=== PATIENT | male | born 1935 | race Caucasian/White ===

== ENCOUNTER 2019-06-08 11:19 | Inpatient (IN) | payer BC ==
[~2019-06-08] VITALS: Ht 167.6 cm; Wt 59.9 kg
[2019-06-08 11:27] VITALS: BP_SYST 117
[2019-06-08 12:17] LABS: BASOPHILS # (AUTO) 0.1 K/uL (0.0-0.2); BASOPHILS % (AUTO) 0.8 % (0.0-2.0); EOSINOPHILS # (AUTO) 0.4 K/uL (0.0-0.4); EOSINOPHILS % (AUTO) 4.1 % (0.0-4.0); HEMATOCRIT 30.8 % (36-54); HEMOGLOBIN 10.2 g/dL (14.0-18.0); LYMPHOCYTES # (AUTO) 0.6 K/uL (1.0-5.5); LYMPHOCYTES % (AUTO) 6.6 % (20.5-51.5); MEAN CORPUSCULAR HEMOGLOBIN 29 pg (27-31); MEAN CORPUSCULAR HGB CONC 33 % (32-36); MEAN CORPUSCULAR VOLUME 89 fL (79.0-98.0); MONOCYTES # (AUTO) 0.9 K/uL (0.0-1.0); MONOCYTES % (AUTO) 10.8 % (1.7-9.3); NEUTROPHILS # (AUTO) 6.7 K/uL (1.8-7.7); NEUTROPHILS % (AUTO) 77.7 % (40.0-70.0); PLATELET COUNT (AUTO) 372 K/uL (130-430); RED BLOOD CELL COUNT(AUTO) 3.48 MIL/uL (4.2-6.2); RED CELL DISTRIBUTION WIDTH 14.4 % (9.0-15.0); WHITE BLOOD COUNT (AUTO) 8.7 K/uL (4.8-10.8)
[2019-06-08 12:31] LABS: ANION GAP 8 (5-15); CALCIUM 8.9 mg/dL (8.4-11.0); CHLORIDE 107 mmol/L (98-107); CREATININE 1.19 mg/dL (0.55-1.30); GLUCOSE 125 mg/dL (70-99); INR 1.2 (0.80-1.20); POTASSIUM 4.4 mmol/L (3.5-5.1); PROTHROMBIN TIME 11.7 SECS (9.5-12.5); SODIUM SERUM 142 mmol/L (136-145); UREA NITROGEN, BLOOD 23 mg/dL (8-21)
[2019-06-08 12:41] LABS: ALANINE AMINOTRANSFERASE 17 U/L (12-78); ALBUMIN 2.4 g/dL (3.4-4.8); ASPARTATE AMINOTRANSFERASE 18 U/L (10-37); FREE T4 (FREE THYROXINE) 1.3 ng/dl (0.8-1.5); TOTAL BILIRUBIN 0.5 mg/dL (0.0-1.0)
[2019-06-08 12:43] LABS: BILIRUBIN,URINE NEGATIVE (NEGATIVE); BLOOD, URINE 1+ (NEGATIVE); CLARITY/URINE CLEAR (CLEAR); COLOR,URINE YELLOW (YELLOW); GLUCOSE,URINE NEGATIVE (NEGATIVE); KETONES,URINE NEGATIVE (NEGATIVE); LEUKOCYTE ESTERASE ,URINE NEGATIVE (NEGATIVE); NITRITE, URINE NEGATIVE (NEGATIVE); PH,URINE 5.5 (5.0-8.0); PROTEIN URINE NEGATIVE (NEGATIVE)
[2019-06-08 12:46] LABS: ALCOHOL, BLOOD < 3 mg/dL (<10)
[2019-06-08 12:49] LABS: BACTERIA,URINE FEW /HPF (None Seen); MUCUS,URINE 1+ /LPF (None Seen); WBC,URINE 0-3 /HPF (0-3)
[2019-06-08 12:53] LABS: BARBITURATE, URINE NEGATIVE (NEG <=200); BENZODIAZEPINE, URINE NEGATIVE (NEG <=150); CANNABINOID, URINE NEGATIVE (NEG <=50); COCAINE, URINE NEGATIVE (NEG <=150); METHAMPHETAMINES SCREEN,URINE NEGATIVE (NEG <=500); OPIATE, URINE POSITIVE (NEG <=100); PHENCYCLIDINE SCREEN,URINE NEGATIVE (NEG <=25); URINE AMPHETAMINE NEGATIVE (NEG <=500); URINE METHADONE NEGATIVE (NEG <=200)
[2019-06-08 12:54] LABS: UR TRICYCLIC ANTIDEPRESSANTS NEGATIVE (NEG <=300); URINE OXYCODONE SCREEN POSITIVE (NEG <=100); URINE PROPOXYPHENE SCREEN NEGATIVE (NEG <=300)
[2019-06-08] MEDS ORDERED: ATEN50TA PO (14:41)
[2019-06-08] MEDS ORDERED: ASPI-1155 PO (14:41)
[2019-06-08] MEDS ORDERED: ATOR10TA68 PO (14:41)
[2019-06-08] MEDS ORDERED: CHOL200026 PO (14:41)
[2019-06-08] MEDS ORDERED: LANS15CA14 PO (14:41)
[2019-06-08] MEDS ORDERED: PLAVIX PO (14:41)
[2019-06-08] MEDS ORDERED: LACT1CAP61 PO (14:41)
[2019-06-08] MEDS ORDERED: ASCO500T20 PO (14:41)
[2019-06-08] MEDS ORDERED: FEN12PAT TD (14:41)
[2019-06-08] MEDS ORDERED: HYDR-3925 PO (14:41)
[2019-06-08] MEDS ORDERED: DIPHENHYDRAMINE INJ 50 MG/ML VIAL IVP ONE (15:00)
[2019-06-08] MEDS ORDERED: MORPHINE 2 MG/ML INJ. SYRINGE IVP ONE (15:00)
[2019-06-08 18:54] VITALS: BP_SYST 145
[2019-06-08] MEDS ORDERED: HYDROcodone/ACETAMIN 5-325 MG TAB (NORCO/ VICODIN) PO PRN (19:00)
[2019-06-08] MEDS ORDERED: ONDANSETRON HCL 4 MG/2 ML VIAL IVP PRN (19:00)
[2019-06-08] MEDS ORDERED: ACETAMINOPHEN 325 MG TABLET PO PRN (19:00)
[2019-06-08] MEDS ORDERED: LORazepam 2 MG/ML VIAL IVP PRN (19:00)
[2019-06-08 20:00] VITALS: BP_SYST 148
[2019-06-08] MEDS ORDERED: HYDROcodone/ACETAMIN 10-325 MG TAB PO PRN (20:15)
[2019-06-08] MEDS ORDERED: NORMAL SALINE 5 ML DISP.SYRIN IVF SCH (22:00)
[2019-06-08] MEDS: LACTOBACILLUS RHAMNOSUS GG 1 CAP CAPSULE PO SCH (23:38)
[2019-06-08] MEDS: NORMAL SALINE 5 ML DISP.SYRIN IVF SCH (23:39)
[2019-06-08] MEDS: HYDROcodone/ACETAMIN 10-325 MG TAB PO PRN (23:47)
[2019-06-09 02:10] VITALS: BP_SYST 143
[2019-06-09] MEDS: NORMAL SALINE 5 ML DISP.SYRIN IVF SCH ×3 (05:56→21:31)
[2019-06-09] MEDS: HYDROcodone/ACETAMIN 10-325 MG TAB PO PRN ×2 (05:57→15:53)
[2019-06-09 07:12] LABS: BASOPHILS # (AUTO) 0.1 K/uL (0.0-0.2); BASOPHILS % (AUTO) 0.6 % (0.0-2.0); EOSINOPHILS # (AUTO) 0.5 K/uL (0.0-0.4); EOSINOPHILS % (AUTO) 6.1 % (0.0-4.0); HEMATOCRIT 31.1 % (36-54); HEMOGLOBIN 10.5 g/dL (14.0-18.0); LYMPHOCYTES # (AUTO) 0.8 K/uL (1.0-5.5); LYMPHOCYTES % (AUTO) 9.5 % (20.5-51.5); MEAN CORPUSCULAR HEMOGLOBIN 30 pg (27-31); MEAN CORPUSCULAR HGB CONC 34 % (32-36); MEAN CORPUSCULAR VOLUME 88 fL (79.0-98.0); MONOCYTES % (AUTO) 11.8 % (1.7-9.3); NEUTROPHILS # (AUTO) 6.3 K/uL (1.8-7.7); PLATELET COUNT (AUTO) 358 K/uL (130-430); RED BLOOD CELL COUNT(AUTO) 3.53 MIL/uL (4.2-6.2); RED CELL DISTRIBUTION WIDTH 14.2 % (9.0-15.0); WHITE BLOOD COUNT (AUTO) 8.7 K/uL (4.8-10.8)
[2019-06-09 07:39] LABS: ALANINE AMINOTRANSFERASE 12 U/L (12-78); ALBUMIN 2.3 g/dL (3.4-4.8); ANION GAP 7 (5-15); ASPARTATE AMINOTRANSFERASE 20 U/L (10-37); CALCIUM 8.8 mg/dL (8.4-11.0); CHLORIDE 107 mmol/L (98-107); CREATININE 1.01 mg/dL (0.55-1.30); GLUCOSE 93 mg/dL (70-99); PHOSPHORUS 3.6 mg/dL (2.7-4.5); POTASSIUM 4.8 mmol/L (3.5-5.1); SODIUM SERUM 142 mmol/L (136-145); TOTAL BILIRUBIN 0.7 mg/dL (0.0-1.0); UREA NITROGEN, BLOOD 18 mg/dL (8-21)
[2019-06-09 08:20] VITALS: BP_SYST 138
[2019-06-09] MEDS ORDERED: fentaNYL 12 MCG/HR PATCH TD SCH (09:00)
[2019-06-09] MEDS: LACTOBACILLUS RHAMNOSUS GG 1 CAP CAPSULE PO SCH ×2 (09:20→21:30)
[2019-06-09] MEDS: ASPIRIN 81 MG TAB.CHEW PO SCH (09:20)
[2019-06-09] MEDS: ASCORBIC ACID 500 MG TABLET PO SCH (09:21)
[2019-06-09] MEDS: ATORVASTATIN 10 MG TABLET PO SCH (09:21)
[2019-06-09] MEDS: CHOLECALCIFEROL (VITAMIN D3) 2,000 UNIT TABLET PO SCH (09:21)
[2019-06-09] MEDS: CLOPIDOGREL BISULFATE 75 MG TABLET PO SCH (09:21)
[2019-06-09] MEDS: ATENOLOL 50 MG TABLET (TENORMIN) PO SCH (09:22)
[2019-06-09 12:47] VITALS: BP_SYST 132
[2019-06-09] MEDS ORDERED: POLYETHYLENE GLYCOL 3350, 17 GM/ POWD.PACK PO ONE (15:45)
[2019-06-09 16:47] VITALS: BP_SYST 124
[2019-06-09] MEDS: OXYCODONE/ACETAMINOPHEN *10*mg/325 mg TABLET PO PRN (19:08)
[2019-06-09 20:00] VITALS: BP_SYST 138
[2019-06-09] MEDS: LANSOPRAZOLE 30 MG CAPSULE.DR PO SCH (21:30)
[2019-06-10] MEDS: HYDROcodone/ACETAMIN 10-325 MG TAB PO PRN ×2 (00:44→14:31)
[2019-06-10 01:02] VITALS: BP_SYST 151
[2019-06-10] MEDS: NORMAL SALINE 5 ML DISP.SYRIN IVF SCH ×3 (05:19→21:31)
[2019-06-10 07:54] LABS: BASOPHILS # (AUTO) 0.1 K/uL (0.0-0.2); BASOPHILS % (AUTO) 0.6 % (0.0-2.0); EOSINOPHILS # (AUTO) 0.5 K/uL (0.0-0.4); EOSINOPHILS % (AUTO) 5.4 % (0.0-4.0); HEMOGLOBIN 10.6 g/dL (14.0-18.0); LYMPHOCYTES # (AUTO) 0.6 K/uL (1.0-5.5); LYMPHOCYTES % (AUTO) 6.6 % (20.5-51.5); MEAN CORPUSCULAR HEMOGLOBIN 29 pg (27-31); MEAN CORPUSCULAR HGB CONC 33 % (32-36); MEAN CORPUSCULAR VOLUME 88 fL (79.0-98.0); MONOCYTES # (AUTO) 0.9 K/uL (0.0-1.0); MONOCYTES % (AUTO) 9.9 % (1.7-9.3); NEUTROPHILS # (AUTO) 6.9 K/uL (1.8-7.7); NEUTROPHILS % (AUTO) 77.5 % (40.0-70.0); PLATELET COUNT (AUTO) 359 K/uL (130-430); RED BLOOD CELL COUNT(AUTO) 3.64 MIL/uL (4.2-6.2); RED CELL DISTRIBUTION WIDTH 14.2 % (9.0-15.0); WHITE BLOOD COUNT (AUTO) 8.9 K/uL (4.8-10.8)
[2019-06-10 08:00] VITALS: BP_SYST 153
[2019-06-10 08:20] LABS: ANION GAP 6 (5-15); CALCIUM 9.2 mg/dL (8.4-11.0); CHLORIDE 105 mmol/L (98-107); CREATININE 0.95 mg/dL (0.55-1.30); GLUCOSE 96 mg/dL (70-99); POTASSIUM 4.4 mmol/L (3.5-5.1); SODIUM SERUM 141 mmol/L (136-145); UREA NITROGEN, BLOOD 14 mg/dL (8-21)
[2019-06-10] MEDS: ATENOLOL 50 MG TABLET (TENORMIN) PO SCH (10:17)
[2019-06-10] MEDS: CLOPIDOGREL BISULFATE 75 MG TABLET PO SCH (10:17)
[2019-06-10] MEDS: POLYETHYLENE GLYCOL 3350, 17 GM/ POWD.PACK PO SCH (10:17)
[2019-06-10] MEDS: LACTOBACILLUS RHAMNOSUS GG 1 CAP CAPSULE PO SCH ×2 (10:17→21:30)
[2019-06-10] MEDS: ATORVASTATIN 10 MG TABLET PO SCH (10:18)
[2019-06-10] MEDS: CHOLECALCIFEROL (VITAMIN D3) 2,000 UNIT TABLET PO SCH (10:18)
[2019-06-10] MEDS: ASPIRIN 81 MG TAB.CHEW PO SCH (10:18)
[2019-06-10] MEDS: ASCORBIC ACID 500 MG TABLET PO SCH (10:18)
[2019-06-10] MEDS: OXYCODONE/ACETAMINOPHEN *10*mg/325 mg TABLET PO PRN ×3 (10:56→21:57)
[2019-06-10 11:33] VITALS: BP_SYST 156
[2019-06-10] MEDS ORDERED: fentaNYL 25 MCG/HR PATCH TD ONE (12:15)
[2019-06-10] MEDS: D5/0.45 NS 1,000 ML IV SCH ×2 (12:52→21:33)
[2019-06-10 15:31] VITALS: BP_SYST 160
[2019-06-10 19:55] VITALS: BP_SYST 144
[2019-06-10] MEDS: LANSOPRAZOLE 30 MG CAPSULE.DR PO SCH (21:30)
[2019-06-11 01:09] VITALS: BP_SYST 124
[2019-06-11] MEDS: D5/0.45 NS 1,000 ML IV SCH ×2 (05:55→18:09)
[2019-06-11] MEDS: OXYCODONE/ACETAMINOPHEN *10*mg/325 mg TABLET PO PRN ×4 (05:55→21:12)
[2019-06-11] MEDS: NORMAL SALINE 5 ML DISP.SYRIN IVF SCH ×3 (05:56→21:11)
[2019-06-11 06:55] LABS: BASOPHILS % (AUTO) 0.5 % (0.0-2.0); EOSINOPHILS # (AUTO) 0.7 K/uL (0.0-0.4); EOSINOPHILS % (AUTO) 7.6 % (0.0-4.0); HEMATOCRIT 30.1 % (36-54); HEMOGLOBIN 10.3 g/dL (14.0-18.0); LYMPHOCYTES # (AUTO) 0.6 K/uL (1.0-5.5); LYMPHOCYTES % (AUTO) 6.4 % (20.5-51.5); MEAN CORPUSCULAR HEMOGLOBIN 30 pg (27-31); MEAN CORPUSCULAR HGB CONC 34 % (32-36); MEAN CORPUSCULAR VOLUME 87 fL (79.0-98.0); MONOCYTES # (AUTO) 0.9 K/uL (0.0-1.0); MONOCYTES % (AUTO) 10.2 % (1.7-9.3); NEUTROPHILS # (AUTO) 6.5 K/uL (1.8-7.7); NEUTROPHILS % (AUTO) 75.3 % (40.0-70.0); PLATELET COUNT (AUTO) 331 K/uL (130-430); RED BLOOD CELL COUNT(AUTO) 3.46 MIL/uL (4.2-6.2); RED CELL DISTRIBUTION WIDTH 14.1 % (9.0-15.0); WHITE BLOOD COUNT (AUTO) 8.7 K/uL (4.8-10.8)
[2019-06-11 07:13] LABS: ANION GAP 5 (5-15); CALCIUM 8.5 mg/dL (8.4-11.0); CHLORIDE 103 mmol/L (98-107); CREATININE 0.84 mg/dL (0.55-1.30); GLUCOSE 124 mg/dL (70-99); SODIUM SERUM 136 mmol/L (136-145); UREA NITROGEN, BLOOD 13 mg/dL (8-21)
[2019-06-11 08:07] VITALS: BP_SYST 110
[2019-06-11] MEDS: POLYETHYLENE GLYCOL 3350, 17 GM/ POWD.PACK PO SCH ×2 (09:00→09:05)
[2019-06-11] MEDS: CLOPIDOGREL BISULFATE 75 MG TABLET PO SCH (09:05)
[2019-06-11] MEDS: ASCORBIC ACID 500 MG TABLET PO SCH (09:05)
[2019-06-11] MEDS: LACTOBACILLUS RHAMNOSUS GG 1 CAP CAPSULE PO SCH ×2 (09:05→21:10)
[2019-06-11] MEDS: CHOLECALCIFEROL (VITAMIN D3) 2,000 UNIT TABLET PO SCH (09:06)
[2019-06-11] MEDS: ATORVASTATIN 10 MG TABLET PO SCH (09:06)
[2019-06-11] MEDS: ASPIRIN 81 MG TAB.CHEW PO SCH (09:06)
[2019-06-11] MEDS: ATENOLOL 50 MG TABLET (TENORMIN) PO SCH (09:07)
[2019-06-11 11:21] VITALS: BP_SYST 126
[2019-06-11 17:54] VITALS: BP_SYST 123
[2019-06-11 19:40] VITALS: BP_SYST 120
[2019-06-11] MEDS: LANSOPRAZOLE 30 MG CAPSULE.DR PO SCH (21:10)
[2019-06-12 01:03] VITALS: BP_SYST 122
[2019-06-12] MEDS: OXYCODONE/ACETAMINOPHEN *10*mg/325 mg TABLET PO PRN ×5 (04:28→22:12)
[2019-06-12] MEDS: D5/0.45 NS 1,000 ML IV SCH ×2 (04:28→16:37)
[2019-06-12] MEDS: NORMAL SALINE 5 ML DISP.SYRIN IVF SCH ×3 (06:54→22:00)
[2019-06-12 07:42] LABS: ALANINE AMINOTRANSFERASE 15 U/L (12-78); ALBUMIN 1.8 g/dL (3.4-4.8); ANION GAP 4 (5-15); ASPARTATE AMINOTRANSFERASE 20 U/L (10-37); CALCIUM 8.1 mg/dL (8.4-11.0); CHLORIDE 104 mmol/L (98-107); CREATININE 0.93 mg/dL (0.55-1.30); GLUCOSE 128 mg/dL (70-99); POTASSIUM 4.1 mmol/L (3.5-5.1); SODIUM SERUM 136 mmol/L (136-145); TOTAL BILIRUBIN 0.4 mg/dL (0.0-1.0); UREA NITROGEN, BLOOD 12 mg/dL (8-21)
[2019-06-12 07:48] LABS: BASOPHILS # (AUTO) 0.1 K/uL (0.0-0.2); BASOPHILS % (AUTO) 0.6 % (0.0-2.0); EOSINOPHILS # (AUTO) 0.9 K/uL (0.0-0.4); EOSINOPHILS % (AUTO) 9.8 % (0.0-4.0); HEMATOCRIT 29.7 % (36-54); LYMPHOCYTES # (AUTO) 0.7 K/uL (1.0-5.5); LYMPHOCYTES % (AUTO) 7.7 % (20.5-51.5); MEAN CORPUSCULAR HEMOGLOBIN 30 pg (27-31); MEAN CORPUSCULAR HGB CONC 34 % (32-36); MEAN CORPUSCULAR VOLUME 88 fL (79.0-98.0); MONOCYTES % (AUTO) 11.2 % (1.7-9.3); NEUTROPHILS # (AUTO) 6.5 K/uL (1.8-7.7); NEUTROPHILS % (AUTO) 70.7 % (40.0-70.0); PLATELET COUNT (AUTO) 326 K/uL (130-430); RED BLOOD CELL COUNT(AUTO) 3.38 MIL/uL (4.2-6.2); WHITE BLOOD COUNT (AUTO) 9.2 K/uL (4.8-10.8)
[2019-06-12] MEDS: POLYETHYLENE GLYCOL 3350, 17 GM/ POWD.PACK PO SCH (08:51)
[2019-06-12] MEDS: CHOLECALCIFEROL (VITAMIN D3) 2,000 UNIT TABLET PO SCH (08:51)
[2019-06-12] MEDS: LACTOBACILLUS RHAMNOSUS GG 1 CAP CAPSULE PO SCH ×2 (08:51→22:07)
[2019-06-12] MEDS: ASCORBIC ACID 500 MG TABLET PO SCH (08:52)
[2019-06-12] MEDS: CLOPIDOGREL BISULFATE 75 MG TABLET PO SCH (08:52)
[2019-06-12] MEDS: ATENOLOL 50 MG TABLET (TENORMIN) PO SCH (08:53)
[2019-06-12] MEDS: ASPIRIN 81 MG TAB.CHEW PO SCH (08:53)
[2019-06-12] MEDS: ATORVASTATIN 10 MG TABLET PO SCH (08:53)
[2019-06-12 12:00] VITALS: BP_SYST 129
[2019-06-12 17:01] VITALS: BP_SYST 135
[2019-06-12 21:55] VITALS: BP_SYST 152
[2019-06-12] MEDS: LANSOPRAZOLE 30 MG CAPSULE.DR PO SCH (22:07)
[2019-06-13] MEDS: OXYCODONE/ACETAMINOPHEN *10*mg/325 mg TABLET PO PRN ×4 (02:16→20:27)
[2019-06-13] MEDS: D5/0.45 NS 1,000 ML IV SCH ×2 (02:17→11:52)
[2019-06-13 02:20] VITALS: BP_SYST 133
[2019-06-13] MEDS: NORMAL SALINE 5 ML DISP.SYRIN IVF SCH ×3 (06:00→20:32)
[2019-06-13 06:55] LABS: BASOPHILS # (AUTO) 0.1 K/uL (0.0-0.2); BASOPHILS % (AUTO) 1.1 % (0.0-2.0); EOSINOPHILS # (AUTO) 0.9 K/uL (0.0-0.4); HEMATOCRIT 30.2 % (36-54); HEMOGLOBIN 10.1 g/dL (14.0-18.0); LYMPHOCYTES % (AUTO) 11.9 % (20.5-51.5); MEAN CORPUSCULAR HEMOGLOBIN 30 pg (27-31); MEAN CORPUSCULAR HGB CONC 33 % (32-36); MEAN CORPUSCULAR VOLUME 89 fL (79.0-98.0); MONOCYTES # (AUTO) 1.1 K/uL (0.0-1.0); MONOCYTES % (AUTO) 12.5 % (1.7-9.3); NEUTROPHILS # (AUTO) 5.6 K/uL (1.8-7.7); NEUTROPHILS % (AUTO) 64.5 % (40.0-70.0); PLATELET COUNT (AUTO) 302 K/uL (130-430); RED CELL DISTRIBUTION WIDTH 14.2 % (9.0-15.0); WHITE BLOOD COUNT (AUTO) 8.7 K/uL (4.8-10.8)
[2019-06-13 07:06] LABS: ANION GAP 4 (5-15); CHLORIDE 104 mmol/L (98-107); CREATININE 0.87 mg/dL (0.55-1.30); GLUCOSE 108 mg/dL (70-99); POTASSIUM 5.2 mmol/L (3.5-5.1); SODIUM SERUM 136 mmol/L (136-145); UREA NITROGEN, BLOOD 13 mg/dL (8-21)
[2019-06-13 07:36] LABS: CALCIUM 8.2 mg/dL (8.4-11.0)
[2019-06-13 07:55] VITALS: BP_SYST 111
[2019-06-13] MEDS: CHOLECALCIFEROL (VITAMIN D3) 2,000 UNIT TABLET PO SCH (07:57)
[2019-06-13] MEDS: CLOPIDOGREL BISULFATE 75 MG TABLET PO SCH (07:57)
[2019-06-13] MEDS: ASPIRIN 81 MG TAB.CHEW PO SCH (07:57)
[2019-06-13] MEDS: LACTOBACILLUS RHAMNOSUS GG 1 CAP CAPSULE PO SCH ×2 (07:57→20:25)
[2019-06-13] MEDS: ATORVASTATIN 10 MG TABLET PO SCH (07:57)
[2019-06-13] MEDS: ATENOLOL 50 MG TABLET (TENORMIN) PO SCH (07:58)
[2019-06-13] MEDS: ASCORBIC ACID 500 MG TABLET PO SCH (07:58)
[2019-06-13] MEDS: POLYETHYLENE GLYCOL 3350, 17 GM/ POWD.PACK PO SCH (07:59)
[2019-06-13] MEDS ORDERED: fentaNYL 12 MCG/HR PATCH TD SCH ×3 (09:00)
[2019-06-13 11:43] VITALS: BP_SYST 123
[2019-06-13 16:55] VITALS: BP_SYST 118
[2019-06-13] MEDS ORDERED: SODIUM POLYSTYRENE SULFONATE 15 GM/60 ML UDBTL PO ONE (17:45)
[2019-06-13 20:17] VITALS: BP_SYST 137
[2019-06-13] MEDS: DOCUSATE SODIUM 250 MG CAPSULE PO SCH (20:25)
[2019-06-13] MEDS: LANSOPRAZOLE 30 MG CAPSULE.DR PO SCH (20:25)
[2019-06-14 00:32] VITALS: BP_SYST 149
[2019-06-14] MEDS: OXYCODONE/ACETAMINOPHEN *10*mg/325 mg TABLET PO PRN ×4 (04:53→21:31)
[2019-06-14] MEDS: NORMAL SALINE 5 ML DISP.SYRIN IVF SCH ×3 (05:21→21:35)
[2019-06-14 06:25] LABS: ALANINE AMINOTRANSFERASE 22 U/L (12-78); ANION GAP 5 (5-15); ASPARTATE AMINOTRANSFERASE 24 U/L (10-37); CALCIUM 8.2 mg/dL (8.4-11.0); CHLORIDE 102 mmol/L (98-107); CREATININE 0.89 mg/dL (0.55-1.30); GLUCOSE 100 mg/dL (70-99); POTASSIUM 3.8 mmol/L (3.5-5.1); SODIUM SERUM 137 mmol/L (136-145); TOTAL BILIRUBIN 0.5 mg/dL (0.0-1.0); UREA NITROGEN, BLOOD 12 mg/dL (8-21)
[2019-06-14 07:18] LABS: BASOPHILS # (AUTO) 0.1 K/uL (0.0-0.2); BASOPHILS % (AUTO) 0.6 % (0.0-2.0); EOSINOPHILS # (AUTO) 0.8 K/uL (0.0-0.4); HEMATOCRIT 29.2 % (36-54); HEMOGLOBIN 9.8 g/dL (14.0-18.0); LYMPHOCYTES # (AUTO) 0.6 K/uL (1.0-5.5); LYMPHOCYTES % (AUTO) 7.3 % (20.5-51.5); MEAN CORPUSCULAR HEMOGLOBIN 30 pg (27-31); MEAN CORPUSCULAR HGB CONC 34 % (32-36); MEAN CORPUSCULAR VOLUME 88 fL (79.0-98.0); MONOCYTES % (AUTO) 11.1 % (1.7-9.3); NEUTROPHILS # (AUTO) 6.3 K/uL (1.8-7.7); PLATELET COUNT (AUTO) 320 K/uL (130-430); RED BLOOD CELL COUNT(AUTO) 3.33 MIL/uL (4.2-6.2); RED CELL DISTRIBUTION WIDTH 13.9 % (9.0-15.0); WHITE BLOOD COUNT (AUTO) 8.7 K/uL (4.8-10.8)
[2019-06-14 08:00] VITALS: BP_SYST 126
[2019-06-14] MEDS: CLOPIDOGREL BISULFATE 75 MG TABLET PO SCH (08:59)
[2019-06-14] MEDS: ASPIRIN 81 MG TAB.CHEW PO SCH (08:59)
[2019-06-14] MEDS: ATORVASTATIN 10 MG TABLET PO SCH (09:00)
[2019-06-14] MEDS: DOCUSATE SODIUM 250 MG CAPSULE PO SCH ×3 (09:00→20:36)
[2019-06-14] MEDS: ASCORBIC ACID 500 MG TABLET PO SCH (09:00)
[2019-06-14] MEDS: POLYETHYLENE GLYCOL 3350, 17 GM/ POWD.PACK PO SCH (09:00)
[2019-06-14] MEDS: LACTOBACILLUS RHAMNOSUS GG 1 CAP CAPSULE PO SCH ×2 (09:00→20:28)
[2019-06-14] MEDS: ATENOLOL 50 MG TABLET (TENORMIN) PO SCH (09:00)
[2019-06-14] MEDS: CHOLECALCIFEROL (VITAMIN D3) 2,000 UNIT TABLET PO SCH (09:00)
[2019-06-14 12:49] VITALS: BP_SYST 118
[2019-06-14 16:57] VITALS: BP_SYST 134
[2019-06-14 20:00] VITALS: BP_SYST 134
[2019-06-14] MEDS: LANSOPRAZOLE 30 MG CAPSULE.DR PO SCH (20:28)
[2019-06-15 00:30] VITALS: BP_SYST 119
[2019-06-15] MEDS: OXYCODONE/ACETAMINOPHEN *10*mg/325 mg TABLET PO PRN ×4 (05:06→20:31)
[2019-06-15] MEDS: NORMAL SALINE 5 ML DISP.SYRIN IVF SCH ×3 (05:07→21:35)
[2019-06-15 06:43] LABS: BASOPHILS # (AUTO) 0.1 K/uL (0.0-0.2); BASOPHILS % (AUTO) 0.9 % (0.0-2.0); EOSINOPHILS # (AUTO) 0.7 K/uL (0.0-0.4); EOSINOPHILS % (AUTO) 9.7 % (0.0-4.0); LYMPHOCYTES # (AUTO) 0.9 K/uL (1.0-5.5); MEAN CORPUSCULAR HEMOGLOBIN 30 pg (27-31); MEAN CORPUSCULAR HGB CONC 34 % (32-36); MEAN CORPUSCULAR VOLUME 88 fL (79.0-98.0); MONOCYTES # (AUTO) 0.8 K/uL (0.0-1.0); MONOCYTES % (AUTO) 10.8 % (1.7-9.3); NEUTROPHILS # (AUTO) 4.8 K/uL (1.8-7.7); NEUTROPHILS % (AUTO) 66.6 % (40.0-70.0); PLATELET COUNT (AUTO) 331 K/uL (130-430); WHITE BLOOD COUNT (AUTO) 7.2 K/uL (4.8-10.8)
[2019-06-15 06:44] LABS: ANION GAP 4 (5-15); CALCIUM 8.8 mg/dL (8.4-11.0); CHLORIDE 103 mmol/L (98-107); CREATININE 0.86 mg/dL (0.55-1.30); GLUCOSE 85 mg/dL (70-99); POTASSIUM 4.4 mmol/L (3.5-5.1); SODIUM SERUM 138 mmol/L (136-145); UREA NITROGEN, BLOOD 14 mg/dL (8-21)
[2019-06-15 07:39] VITALS: BP_SYST 140
[2019-06-15] MEDS: ATORVASTATIN 10 MG TABLET PO SCH (08:06)
[2019-06-15] MEDS: HYDROcodone/ACETAMIN 10-325 MG TAB PO PRN ×2 (08:07→19:14)
[2019-06-15] MEDS: ASCORBIC ACID 500 MG TABLET PO SCH (08:07)
[2019-06-15] MEDS: CHOLECALCIFEROL (VITAMIN D3) 2,000 UNIT TABLET PO SCH (08:07)
[2019-06-15] MEDS: LACTOBACILLUS RHAMNOSUS GG 1 CAP CAPSULE PO SCH ×2 (08:07→20:31)
[2019-06-15] MEDS: CLOPIDOGREL BISULFATE 75 MG TABLET PO SCH (08:07)
[2019-06-15] MEDS: ASPIRIN 81 MG TAB.CHEW PO SCH (08:08)
[2019-06-15] MEDS: ATENOLOL 50 MG TABLET (TENORMIN) PO SCH (08:08)
[2019-06-15] MEDS: DOCUSATE SODIUM 250 MG CAPSULE PO SCH ×2 (08:08→20:31)
[2019-06-15] MEDS: POLYETHYLENE GLYCOL 3350, 17 GM/ POWD.PACK PO SCH (08:08)
[2019-06-15 11:36] VITALS: BP_SYST 113
[2019-06-15 12:40] VITALS: BP_SYST 117
[2019-06-15 16:55] VITALS: BP_SYST 112
[2019-06-15 20:00] VITALS: BP_SYST 142
[2019-06-15] MEDS: LANSOPRAZOLE 30 MG CAPSULE.DR PO SCH (20:31)
[2019-06-16] MEDS: OXYCODONE/ACETAMINOPHEN *10*mg/325 mg TABLET PO PRN ×4 (00:02→17:17)
[2019-06-16 01:18] VITALS: BP_SYST 105
[2019-06-16] MEDS: NORMAL SALINE 5 ML DISP.SYRIN IVF SCH ×2 (05:05→14:00)
[2019-06-16 08:00] VITALS: BP_SYST 125
[2019-06-16] MEDS: DOCUSATE SODIUM 250 MG CAPSULE PO SCH (08:31)
[2019-06-16] MEDS: POLYETHYLENE GLYCOL 3350, 17 GM/ POWD.PACK PO SCH (08:32)
[2019-06-16] MEDS: CLOPIDOGREL BISULFATE 75 MG TABLET PO SCH (08:35)
[2019-06-16] MEDS: LACTOBACILLUS RHAMNOSUS GG 1 CAP CAPSULE PO SCH (08:35)
[2019-06-16] MEDS: CHOLECALCIFEROL (VITAMIN D3) 2,000 UNIT TABLET PO SCH (08:35)
[2019-06-16] MEDS: ASCORBIC ACID 500 MG TABLET PO SCH (08:35)
[2019-06-16] MEDS: ASPIRIN 81 MG TAB.CHEW PO SCH (08:35)
[2019-06-16] MEDS: ATENOLOL 50 MG TABLET (TENORMIN) PO SCH (08:36)
[2019-06-16] MEDS: HYDROcodone/ACETAMIN 10-325 MG TAB PO PRN (08:36)
[2019-06-16] MEDS: ATORVASTATIN 10 MG TABLET PO SCH (08:36)
[2019-06-16 11:24] VITALS: BP_SYST 101
[2019-06-16 13:42] VITALS: BP_SYST 121
[2019-06-16] MEDS ORDERED: fentaNYL 12 MCG/HR PATCH TD ONE (14:00)
[2019-06-16 15:23] VITALS: BP_SYST 109
== END 2019-06-16 18:00 | DRG 551 ==
LOC: SED 11:19 → SMU 14:44
PROVIDERS: ADMIT Preventive Medicine Preventive Medicine/Occupational Environmental Medicine; ATTEND Preventive Medicine Preventive Medicine/Occupational Environmental Medicine
DX: S32.049A Unspecified fracture of fourth lumbar vertebra, initial encounter for closed fracture (principal); E43 Unspecified severe protein-calorie malnutrition; G93.40 Encephalopathy, unspecified; C79.89 Secondary malignant neoplasm of other specified sites; D64.9 Anemia, unspecified; E78.5 Hyperlipidemia, unspecified; E87.5 Hyperkalemia; G89.4 Chronic pain syndrome; I10 Essential (primary) hypertension; W18.30XA Fall on same level, unspecified, initial encounter; E83.51 Hypocalcemia; Z68.21 Body mass index [BMI] 21.0-21.9, adult; Z79.899 Other long term (current) drug therapy; Z88.0 Allergy status to penicillin; Z88.1 Allergy status to other antibiotic agents; Z88.8 Allergy status to other drugs, medicaments and biological substances; Z95.1 Presence of aortocoronary bypass graft; Z95.2 Presence of prosthetic heart valve; Y93.89 Activity, other specified; Y92.89 Other specified places as the place of occurrence of the external cause; Y99.8 Other external cause status; Z79.82 Long term (current) use of aspirin
CPT/HCPCS: 36415; 70450-TC; 71045; 72131; 74018; 80048; 80053; 80307; 81000-TC; 82140-TC; 83605; 83735-TC; 83880; 84100-TC; 84439; 84484; 85025; 85610-TC; 87040-TC; 93005; 96374; 96375; 97112-GP; 97116-GP; 97530-GP; 99285; G0482; J1200; J2060; J2270